=== PATIENT | male | born 1965 | race African-American/Black ===

== ENCOUNTER 2020-09-08 17:33 | Emergency (ER) | payer MEDICAID ==
[~2020-09-08] VITALS: Ht 175.3 cm; Wt 97.1 kg
[2020-09-08 17:35] VITALS: BP 131/84
--- NOTE | 2020-09-08 17:35 | NUR ---
ED Nurse Note: Pt JANESSA Bagley from [facility] for FC insertion. Per EMS, nursing staff at the facility had a difficulty advancing the catheter in. Trauma around the genital area is noted from condom catheter. AAOx3, verbally responsive. No SOB. ERMD at bedside.
--- NOTE | 2020-09-08 18:20 | NUR ---
ED Nurse Note: 2 RNs attempted to insert tyson cath but met resistance. ERMD notified.
--- NOTE | 2020-09-08 19:20 | NUR ---
ED Nurse Note: Informed consent for suprapubic catheter placement obtained by Dr. Eusebio Hobson and patient signed the consent.
--- NOTE | 2020-09-08 21:16 | NUR ---
ED Nurse Note: report given to CHANCE Caceres at [facility].
[2020-09-08 22:04] VITALS: BP 110/74
--- NOTE | 2020-09-08 22:04 | NUR ---
ER DISCHARGE NOTE: Patient is cleared to be discharged per ERMD, pt is aox4, on room air, with stable vital signs. [facility] given patient packet, pt was able to verbalize dc instructions understanding, pt id band removed. pt had no belongings. pt transported back to [facility] accompanied by [facility] in stable condition.
--- NOTE | 2020-09-08 22:44 | Emergency Room Report ---
History of Present Illness General Chief Complaint: Male Urogenital Problems Source: Patient, Medical Record Present Illness HPI 54-year-old male presents the ED for urinary retention. Coming from [facility] facility. History of BPH. Navarrete catheter was removed few weeks ago and has not had had a hard time urinating. Attempted with condom catheter. Nursing at [facility] facility attempted to place a Navarrete and were unsuccessful. Patient states he feels okay. Denies fevers or chills. Denies any pain. No other aggravating relieving factors. 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 Patient History Past Medical History: HTN, GERD, other - BPH Past Surgical History: none Pertinent Family History: none Social History: Denies: smoking, alcohol use, drug use Immunizations: UTD Reviewed Nursing Documentation: PMH: Agreed; PSxH: Agreed Nursing Documentation-PMH Hx Hypertension: Yes Hx Gastrointestinal Problems: Yes - GERD Hx Neurological Problems: Yes - paraplegia Review of Systems All Other Systems: negative except mentioned in HPI Physical Exam Vital Signs Date Time Temp Pulse Resp B/P (MAP) Pulse Ox O2 Delivery O2 Flow Rate FiO2 09/08/20 17:29 98.8 75 18 131/84 (100) 97 09/08/20 17:35 Room Air Sp02 EP Interpretation: reviewed, normal General Appearance: no apparent distress, alert, GCS 15, non-toxic Head: normocephalic, atraumatic Eyes: bilateral eye normal inspection, bilateral eye PERRL ENT: hearing grossly normal, normal pharynx, no angioedema, normal voice Neck: full range of motion, supple/symm/no masses Respiratory: chest non-tender, lungs clear, normal breath sounds, speaking full sentences Cardiovascular #1: regular rate, rhythm, no edema Cardiovascular #2: 2+ carotid (R), 2+ carotid (L), 2+ radial (R), 2+ radial (L), 2+ dorsalis pedis (R), 2+ dorsalis pedis (L) Gastrointestinal: normal bowel sounds, non tender, soft, non-distended, no guarding, no rebound Rectal: deferred Genitourinary: normal inspection, no CVA tenderness Musculoskeletal: back normal, non-tender Neurologic: alert, motor strength/tone normal, oriented x3, sensory intact, responsive, speech normal Psychiatric: judgement/insight normal, memory normal, mood/affect normal, no suicidal/homicidal ideation Reflexes: 3+ bicep (R), 3+ bicep (L), 3+ tricep (R), 3+ tricep (L), 3+ knee (R), 3+ knee (L) Skin: no rash Lymphatic: no adenopathy Medical Decision Making Diagnostic Impression: Primary Impression: Abnormal urogenital findings ER Course Hospital Course 54 yo M presents with urinary retention. h/o BPH Differential diagnoses include: obstruction, UTI, BPH Clinical course Patient placed on stretcher. After initial history and physical I attempted to place Navarrete catheter and coud with no success Dr. Hobson also attempted but was unsuccessful and placed a suprapubic catheter Discussed with PMD Dr. Gomez. Safe for discharge back to [facility] facility. Diagnosis - urinary retention Stable and discharged to SNF with suprapubic catheter + leg bag. Instructed to followup with PMD/urologist. Return to ED if symptoms recur or worsen Last Vital Signs Date Time Temp Pulse Resp B/P (MAP) Pulse Ox O2 Delivery O2 Flow Rate FiO2 09/08/20 22:04 98.6 70 18 110/74 99 Room Air Status: improved Disposition: SNF Condition: Stable Referrals: Zeina Gomez M.D. (PCP) Eusebio Hobson MD Patient Instructions: Suprapubic Catheter Replacement, Care After Jermaine Calloway MD Sep 08, 2020 22:44
== END 2020-09-08 22:04 | disposition home or self-care (01) ==
LOC: EDBD 17:33 → EMR 18:12
DX: R33.9 Retention of urine, unspecified (principal); I10 Essential (primary) hypertension; K21.9 Gastro-esophageal reflux disease without esophagitis; N40.0 Benign prostatic hyperplasia without lower urinary tract symptoms; G82.20 Paraplegia, unspecified; Z88.5 Allergy status to narcotic agent
CPT/HCPCS: 51702; Z7502; 99284

== ENCOUNTER 2020-09-15 01:35 | Emergency (ER) | payer MEDICAID, OTHER ==
[~2020-09-15] VITALS: Ht 167.6 cm; Wt 81.6 kg
[2020-09-15 01:40] VITALS: BP 118/79
--- NOTE | 2020-09-15 01:40 | NUR ---
ED Nurse Note: brought in by [facility] from [facility] c/o fever of 101.7 at facility. per ems, pt given 600 mg tylenol and norco5-325 mg for pain. temp by ems was 97.8. vss, nad, bedbound, aaox4, droplet precaution observed, on quality assurance monitor body, ermd at bedside. pt is quadriplegic. breathing unlabored and even, denies any pain at this time. pt presents with suprapubic catheter and gi stoma pouch
--- NOTE | 2020-09-15 01:50 | Emergency Room Report ---
History of Present Illness General Chief Complaint: Fever Source: Patient, Medical Record, EMS Present Illness HPI This is a 54-year-old male who is a paraplegic. He has colostomy bag and recent suprapubic catheter placed here. Patient presents with fever. He is coming from a shelter. There is Covid patient over there. Fever was 101.7 tonight. He received Tylenol. He has no other symptoms. No cough or congestion. No pain. No urinary complaint. 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 COVID-19 Screening: PUI COVID-19 COVID-19 Testing Source: [facility] Patient History Past Medical History: see triage record, old chart reviewed Past Surgical History: other Pertinent Family History: none Social History: Denies: smoking Immunizations: other Nursing Documentation-PMH Hx Hypertension: Yes Hx Gastrointestinal Problems: Yes - GERD Hx Neurological Problems: Yes - paraplegia Review of Systems Constitutional: Reports: fever Eye: Denies: eye pain, blurred vision ENT: Denies: ear pain, nose congestion, throat swelling Respiratory: Denies: cough, shortness of breath Cardiovascular: Denies: chest pain, palpitations Gastrointestinal: Denies: abdominal pain, diarrhea, nausea, vomiting Musculoskeletal: Denies: back pain, joint pain Skin: Denies: rash Neurological: Denies: headache, numbness Endocrine: Denies: increased thirst, increased urine Hematologic/Lymphatic: Denies: easy bruising All Other Systems: negative except mentioned in HPI Physical Exam Vital Signs Date Time Temp Pulse Resp B/P (MAP) Pulse Ox O2 Delivery O2 Flow Rate FiO2 09/15/20 01:36 97.7 76 16 122/74 (90) 97 Room Air Vitals normal Sp02 EP Interpretation: reviewed, normal General Appearance: well appearing, no apparent distress, alert Head: normocephalic, atraumatic Eyes: bilateral eye PERRL, bilateral eye EOMI ENT: hearing grossly normal, normal pharynx Neck: full range of motion, supple, no meningismus Respiratory: chest non-tender, lungs clear, normal breath sounds Cardiovascular #1: regular rate, rhythm, no murmur Gastrointestinal: normal bowel sounds, non tender, no mass, no organomegaly, no bruit, non-distended Musculoskeletal: other - Decubital ulcer of sacrum Neurologic: other - Patient is paraplegic Psychiatric: mood/affect normal Medical Decision Making Diagnostic Impression: Primary Impression: UTI (urinary tract infection) Qualified Codes: N30.00 - Acute cystitis without hematuria Additional Impression: COVID-19 virus infection ER Course Patient presents with fever. He is positive for Covid. Also has UTI. Dose of antibiotics given IM here. Patient has no rest or distress. Oxygenation is 100% on room air. Will discharge to shelter. Chest X-Ray Diagnostic Results Chest X-Ray Diagnostic Results : Chest X-Ray Ordered: Yes # of Views/Limited/Complete: 1 View Indication: Shortness of Breath EP Interpretation: Yes Interpretation: no consolidation, no effusion, no pneumothorax, no acute cardiopulmonary disease Impression: No acute disease Electronically Signed by: Adnrew Sofia MD Last Vital Signs Date Time Temp Pulse Resp B/P (MAP) Pulse Ox O2 Delivery O2 Flow Rate FiO2 09/15/20 01:36 97.7 76 16 122/74 (90) 97 Room Air Status: improved Disposition: SNF Condition: Stable Scripts Levofloxacin (LEVOFLOXACIN*) 500 Mg Tablet 500 MG ORAL DAILY, #7 TAB Prov: Andrew Sofia MD 09/15/20 Additional Instructions: Follow-up with your doctor in 2 to 3 days. Return if symptoms worsen. Andrew Sofia MD Sep 15, 2020 01:50
--- NOTE | 2020-09-15 01:55 | NUR ---
ED Nurse Note: xr at bedside
--- NOTE | 2020-09-15 02:00 | NUR ---
ED Nurse Note: ermd aware of no iv access
--- NOTE | 2020-09-15 02:00 | NUR ---
ED Nurse Note: unable to obtain iv access by both primary rn and charge master analyst. blood, covid and urine drawn and sent to lab.
[2020-09-15 02:22] LABS: APPEARANCE,URINE TURBID; BILIRUBIN, URINE NEGATIVE (NEGATIVE); GLUCOSE, URINE (UA) NEGATIVE (NEGATIVE); KETONES,URINE NEGATIVE (NEGATIVE); LEUKOCYTE ESTERASE ,URINE 3+ (NEGATIVE); NITRITE,URINE POSITIVE (NEGATIVE); PH,URINE 8 (4.5-8.0); PROTEIN,URINE 3+ (NEGATIVE); UROBILINOGEN,URINE NORMAL MG/DL (0.0-1.0)
[2020-09-15 02:30] LABS: COLOR,URINE YELLOW
[2020-09-15 02:42] LABS: BASOPHILS % (AUTO) 0.5 % (0.0-2.0); EOSINOPHILS % (AUTO) 3.7 % (0.0-3.0); HEMATOCRIT 32.6 % (42.0-52.0); HEMOGLOBIN 10.2 G/DL (14.2-18.0); LYMPHOCYTES % (AUTO) 30.6 % (20.0-45.0); MEAN CORPUSCULAR VOLUME 86 FL (80-99); MONOCYTES % (AUTO) 6.1 % (1.0-10.0); NEUTROPHILS % (AUTO) 59.1 % (45.0-75.0); PLATELET COUNT 312 K/UL (150-450); RED BLOOD COUNT 3.81 M/UL (4.70-6.10); RED CELL DISTRIBUTION WIDTH 16.7 % (11.6-14.8)
--- NOTE | 2020-09-15 02:45 | Diagnostic Imaging Report ---
EXAM: XR Chest, 1 View CLINICAL HISTORY: SOB TECHNIQUE: Frontal view of the chest. COMPARISON: No relevant prior studies available. FINDINGS: Lungs: Otherwise no acute cardiopulmonary disease. Pleural space: Unremarkable. No pneumothorax. Heart: Mild cardiomegaly. Mediastinum: Unremarkable. Bones/joints: No acute abnormality IMPRESSION: 1. Mild cardiomegaly. 2. Otherwise no acute cardiopulmonary disease. 3. If there is continued concern, recommend CT.
[2020-09-15 02:53] LABS: ANION GAP 8 mmol/L (5-15); BLOOD UREA NITROGEN 12 mg/dL (7-18); CALCIUM 8.6 MG/DL (8.5-10.1); CARBON DIOXIDE 26 MMOL/L (21-32); CHLORIDE 100 MMOL/L (98-107); CREATININE 0.8 MG/DL (0.55-1.30); POTASSIUM 3.8 MMOL/L (3.5-5.1); SODIUM 134 MMOL/L (136-145)
[2020-09-15 03:09] LABS: ALANINE AMINOTRANSFERASE 18 U/L (12-78); ALBUMIN 2.6 G/DL (3.4-5.0); ALBUMIN/GLOBULIN RATIO 0.5 (1.0-2.7); ALKALINE PHOSPHATASE 106 U/L (46-116); ASPARTATE AMINO TRANSFERASE 17 U/L (15-37); BILIRUBIN,TOTAL 0.3 MG/DL (0.2-1.0); CKMB < 0.5 NG/ML (0.0-3.6); CREATINE KINASE 125 U/L (26-308); FERRITIN 993 NG/ML (8-388); LACTATE DEHYDROGENASE 201 U/L (81-234)
[2020-09-15] MEDS ORDERED: LEVOFLOXACIN500 MG ORAL (04:03)
[2020-09-15 06:30] VITALS: BP 132/70
--- NOTE | 2020-09-15 06:30 | NUR ---
ER DISCHARGE NOTE: Patient is cleared to be discharged back to facility via deisy MENDIOLA, pt is aox4, on room air, with stable vital signs. pt was given dc and prescription instructions, pt was able to verbalize understanding, pt id band removed without complications.
== END 2020-09-15 07:00 ==
LOC: EDBD 01:35 → EMR 01:49
DX: N39.0 Urinary tract infection, site not specified (principal); U07.1 COVID-19; R50.9 Fever, unspecified; I10 Essential (primary) hypertension; K21.9 Gastro-esophageal reflux disease without esophagitis; G82.20 Paraplegia, unspecified; Z93.3 Colostomy status; Z88.5 Allergy status to narcotic agent; Z88.8 Allergy status to other drugs, medicaments and biological substances
CPT/HCPCS: 36415; 71045; 80053; 81003; 82550; 82553; 82728; 83605; 83615; 83690; 83880; 84484; 85025; 85379; 85610; 85730; 86140; 87040; 87086; 87181; 96372; U0002; Z7502; 99284

== ENCOUNTER 2020-09-15 21:55 | Emergency (ER) | payer MEDICAID, OTHER ==
[~2020-09-15] VITALS: Ht 177.8 cm; Wt 90.7 kg
[~2020-09-15 21:55] MED LIST: LEVOFLOXACIN500 MG ORAL
--- NOTE | 2020-09-15 22:15 | NUR ---
ED Nurse Note: Patient brought in by ambulance [facility] from [facility] for suprapubic catheter insertion. Pt would be sent back to SNF per staff after placement. Pt is alert and awake. PT was Covid positive yesterday. Isolation prec initiated.
[2020-09-15 22:20] VITALS: BP 122/72
--- NOTE | 2020-09-15 22:20 | NUR ---
ED Nurse Note: ERMD at bedside
--- NOTE | 2020-09-15 23:00 | NUR ---
ED Nurse Note: RENÉE guided IV insertion done by MAURY at bedside
[2020-09-15 23:28] LABS: BASOPHILS % (AUTO) 1.1 % (0.0-2.0); EOSINOPHILS % (AUTO) 3.7 % (0.0-3.0); HEMATOCRIT 31.7 % (42.0-52.0); HEMOGLOBIN 10.1 G/DL (14.2-18.0); LYMPHOCYTES % (AUTO) 27.9 % (20.0-45.0); MEAN CORPUSCULAR VOLUME 86 FL (80-99); MONOCYTES % (AUTO) 4.9 % (1.0-10.0); NEUTROPHILS % (AUTO) 62.4 % (45.0-75.0); PLATELET COUNT 336 K/UL (150-450); RED BLOOD COUNT 3.69 M/UL (4.70-6.10); RED CELL DISTRIBUTION WIDTH 16.8 % (11.6-14.8); WHITE BLOOD COUNT 11.9 K/UL (4.8-10.8)
[2020-09-15] MEDS ORDERED: Piperacillin/Tazobactam 3.375 GM in NS 110 ML IVPB ONE (23:30)
[2020-09-15] MEDS ORDERED: Omnipaque-300 100ml vial INJ PRN (23:30)
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
[2020-09-15 23:32] LABS: ANION GAP 6 mmol/L (5-15); BLOOD UREA NITROGEN 14 mg/dL (7-18); CALCIUM 9.1 MG/DL (8.5-10.1); CARBON DIOXIDE 29 MMOL/L (21-32); CHLORIDE 99 MMOL/L (98-107); CREATININE 0.9 MG/DL (0.55-1.30); POTASSIUM 4.4 MMOL/L (3.5-5.1); SODIUM 133 MMOL/L (136-145)
[2020-09-15 23:37] LABS: ALANINE AMINOTRANSFERASE 16 U/L (12-78); ALBUMIN 2.6 G/DL (3.4-5.0); ALBUMIN/GLOBULIN RATIO 0.5 (1.0-2.7); ALKALINE PHOSPHATASE 112 U/L (46-116); ASPARTATE AMINO TRANSFERASE 26 U/L (15-37); BILIRUBIN,TOTAL 0.3 MG/DL (0.2-1.0)
[2020-09-16] MEDS ORDERED: HYDROmorphone 1mg/ml Carpuject IVP PRN
--- NOTE | 2020-09-16 01:15 | NUR ---
ED Nurse Note: CT scan done
--- NOTE | 2020-09-16 01:42 | NUR ---
ED Nurse Note: Report given to DAGO FLETCHER at [facility]
--- NOTE | 2020-09-16 02:07 | Diagnostic Imaging Report ---
EXAM: CT Abdomen and Pelvis With Intravenous Contrast CLINICAL HISTORY: ABD PAIN TECHNIQUE: Axial computed tomography images of the abdomen and pelvis with intravenous contrast. CTDI is 14.1 mGy and DLP is 762.7 mGy-cm. One or more of the following dose reduction techniques were used: automated exposure control, adjustment of the mA and/or kV according to patient size, use of iterative reconstruction technique. COMPARISON: No relevant prior studies available. FINDINGS: Lung bases: No mass. No consolidation. ABDOMEN: Liver: Mildly nodular. Gallbladder and bile ducts: Unremarkable. Pancreas: Unremarkable. Spleen: Unremarkable. Adrenals: Unremarkable. Kidneys and ureters: No hydronephrosis. Stomach and bowel: No bowel obstruction. No bowel wall thickening. Mild hiatal hernia. PELVIS: Appendix: No evidence of appendicitis. Bladder: Severely distended bladder with areas of diverticulum. Reproductive: Unremarkable. ABDOMEN and PELVIS: Intraperitoneal space: Unremarkable. Bones/joints: No acute fractures. Severe disc height loss at L5-S1. Chronic appearance of the pelvic bones and bilateral femur. Soft tissues: Left-sided ostomy. Bilateral sacral decubitus ulcers. Vasculature: No abdominal aortic aneurysm. IVC filter is in place. Lymph nodes: No enlarged lymph nodes. IMPRESSION: 1. Mildly nodular liver suggestive of early cirrhotic morphology. 2. Mild hiatal hernia. 3. Distended bladder with areas of diverticulum. 4. Bilateral sacral decubitus ulcers with chronic severe deformities of the pelvic and femoral bones. Likely due to chronic osteomyelitis and posttreatment changes.
--- NOTE | 2020-09-16 02:32 | NUR ---
ED Nurse Note: Bedside report given to [facility] jenna MANJARREZ
--- NOTE | 2020-09-16 02:33 | NUR ---
ER DISCHARGE NOTE: Patient is cleared to be transferred per ERMD. Pt was picked up by [facility] ambulance going to [facility]. Pts packet and report given to ambulance personnel. Pt id band and iv site endorsed without complications. Pt was transported safely to the [facility] and to the ambulance
[2020-09-16 02:36] VITALS: BP 134/85
== END 2020-09-16 02:30 | disposition short-term general hospital (02) ==
LOC: EDBD 21:55 → EMR 22:49 → EDBEDREQ 09-16 00:40 → EMR 09-16 02:30
DX: N32.1 Vesicointestinal fistula (principal); T83.028A Displacement of other urinary catheter, initial encounter; N30.00 Acute cystitis without hematuria; U07.1 COVID-19; I10 Essential (primary) hypertension; G82.20 Paraplegia, unspecified; Z88.5 Allergy status to narcotic agent; Z88.8 Allergy status to other drugs, medicaments and biological substances; Z91.09 Other allergy status, other than to drugs and biological substances
CPT/HCPCS: 36415; 51705; 74177; 80053; 83605; 83690; 85025; 85610; 85730; 86850; 86900; 86901; 96365; 96368; J2543; J7030; Q9965; Z7502; 99284

== ENCOUNTER 2020-10-24 18:08 | Emergency (ER) | payer MEDICAID ==
[~2020-10-24] VITALS: Ht 180.3 cm; Wt 90.7 kg
--- NOTE | 2020-10-24 18:40 | Emergency Room Report ---
History of Present Illness General Chief Complaint: Male Urogenital Problems Source: EMS Present Illness HPI 55-year-old male here for suprapubic catheter dysfunction. Patient has had a suprapubic catheter in place for several years but this particular catheter has been in place for 1 month. Patient says "it is about time that he gets replaced." He says that for the past 24 hours the catheter has not been draining any urine. There has been some urine leakage from around the catheter insertion site. Denies fevers, chills, chest pain, palpitation, shortness of breath, back pain, abdominal pain, nausea, vomiting, diarrhea, dysuria. 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 COVID-19 Screening: Negative COVID-19 COVID-19 Testing Source: elijah liang [facility] Nursing Documentation-H Past Medical History: No History, Except For Hx Hypertension: Yes Hx Gastrointestinal Problems: Yes - GERD Hx Neurological Problems: Yes - paraplegia Review of Systems All Other Systems: negative except mentioned in HPI Physical Exam Vital Signs Date Time Temp Pulse Resp B/P (MAP) Pulse Ox O2 Delivery O2 Flow Rate FiO2 10/24/20 18:09 98.8 72 18 134/68 (90) 95 Room Air Sp02 EP Interpretation: reviewed, normal General Appearance: no apparent distress, alert, non-toxic Head: normocephalic, atraumatic Eyes: bilateral eye normal inspection, bilateral eye PERRL ENT: hearing grossly normal, normal pharynx, no angioedema, normal voice Neck: full range of motion, supple/symm/no masses Respiratory: chest non-tender, lungs clear, normal breath sounds, speaking full sentences Cardiovascular #1: regular rate, rhythm, no edema Cardiovascular #2: 2+ carotid (R), 2+ carotid (L), 2+ radial (R), 2+ radial (L), 2+ dorsalis pedis (R), 2+ dorsalis pedis (L) Gastrointestinal: normal bowel sounds, non tender, soft, non-distended, no guarding, no rebound, other - Suprapubic catheter in place with active urine drainage from the insertion site. Left lower quadrant ostomy in place with fecal matter within the colostomy bag. Stoma pink Rectal: deferred Genitourinary: normal inspection, no CVA tenderness Musculoskeletal: back normal, normal range of motion, gait/station normal, non- tender Neurologic: alert, motor strength/tone normal, oriented x3, sensory intact, responsive, speech normal Psychiatric: judgement/insight normal, memory normal, mood/affect normal, no suicidal/homicidal ideation Lymphatic: no adenopathy Medical Decision Making Diagnostic Impression: Primary Impression: Suprapubic catheter dysfunction ER Course Laboratory Tests Test 10/24/20 18:50 Urine Color Yellow Urine Appearance Cloudy Urine pH 6 (4.5-8.0) Urine Specific Lykens 1.010 (1.005-1.035) Urine Protein 1+ (NEGATIVE) H Urine Glucose (UA) Negative (NEGATIVE) Urine Ketones Negative (NEGATIVE) Urine Blood 2+ (NEGATIVE) H Urine Nitrite Positive (NEGATIVE) H Urine Bilirubin Negative (NEGATIVE) Urine Urobilinogen Normal MG/DL (0.0-1.0) Urine Leukocyte Esterase 3+ (NEGATIVE) H Urine RBC 2-4 /HPF (0 - 0) H Urine WBC Tntc /HPF (0 - 0) H Urine Squamous Epithelial Cells Few /LPF (NONE/OCC) Urine Bacteria Many /HPF (NONE) H 55-year-old male here with nondraining suprapubic catheter. The catheter was replaced easily with another 16 Frisian catheter. 600 cc of urine were drained. Urinalysis showed evidence of infection. Review of microbiology reports from years past show pansensitive E. coli UTI. Patient given prescription for Keflex. Told to follow-up with primary care. Discharged in stable condition. Last Vital Signs Date Time Temp Pulse Resp B/P (MAP) Pulse Ox O2 Delivery O2 Flow Rate FiO2 10/24/20 18:09 98.8 72 18 134/68 (90) 95 Room Air Scripts Cephalexin* (KEFLEX*) 500 Mg Capsule 500 MG ORAL EVERY 12 HOURS, #14 CAP 0 Refills Prov: Jose Carter M.D. 10/24/20 Jose Carter M.D. Oct 24, 2020 18:40
--- NOTE | 2020-10-24 18:50 | NUR ---
ED Nurse Note:pt. was BIBA from SNF with leaking suprapubic catheter, pt. is A/Ox4 , VSS, catheter was changed by ER MD, urine sent to labs
[2020-10-24 19:08] LABS: APPEARANCE,URINE CLOUDY; BILIRUBIN, URINE NEGATIVE (NEGATIVE); GLUCOSE, URINE (UA) NEGATIVE (NEGATIVE); KETONES,URINE NEGATIVE (NEGATIVE); LEUKOCYTE ESTERASE ,URINE 3+ (NEGATIVE); NITRITE,URINE POSITIVE (NEGATIVE); PH,URINE 6 (4.5-8.0); PROTEIN,URINE 1+ (NEGATIVE); UROBILINOGEN,URINE NORMAL MG/DL (0.0-1.0)
[2020-10-24 19:09] LABS: COLOR,URINE YELLOW
[2020-10-24 19:11] VITALS: BP 134/68
[2020-10-24] MEDS ORDERED: CEPHALEXIN500 MG ORAL (19:16)
--- NOTE | 2020-10-24 19:16 | NUR ---
HAND-OFF: Report given to Ina.
--- NOTE | 2020-10-24 19:30 | NUR ---
ED Nurse Note: RECIEVED REPORT FROM AM NURSE TO RESUME CARE, PT HERE FROM SNF WITH C/O CLOGGED SUPRAPUBIC CATH, AT BEDSIDE AND JUST COMPLETED CHANGING CATH, ORDERS GIVEN VERBALLY TO IRRIGATE CATH AND MONITOR OUTPUT CLOSELY, MILD SEDIMENTATION NOTED, IRRIGATED WITH 40ML OF ns AND RECIEVED 600ML OF RETURNED YELLOW URINE, PT STATES IMMEDIATE RELIEF OF PRESSURE IN ABDOMEN, V/S STABLE, PT BEING PREPARED TO GO BACK TO FACILITY, DENIES ANY OTHER COMPLAITNS OR DISCOMFORTS, NAD NOTED.
[2020-10-24 20:05] VITALS: BP 131/74
--- NOTE | 2020-10-24 20:45 | NUR ---
ED Nurse Note: Pt continues to rest quietly on gurney, denies pain or any acute chagnes, suprapubic cath to drainage and continues to drain urine, pt has been discharged and waiting for ambulance transport, pt assisted with repositioning and diaper change, nad or changes noted, will continue to closely monitor while waiting for transport back to facility.
--- NOTE | 2020-10-24 21:40 | NUR ---
ED Nurse Note: Ambulance transport has arrived for pt transport, placed call to [facility] at [phone], spoke with nurse Peacock and gave all pertintent info and informed of pt returning with d/c instructions and prescription, [facility] ambulance rig#[id number] has arrived, report and all forms given to driver/merchandiser Ricardo, pt leaving awake, alert and oriented x 4, denies pain, no sob or labored breathing, nad ntoed during pt transport back to facility.
[2020-10-24 21:45] VITALS: BP 139/79
[2020-10-24 22:00] VITALS: BP 139/79
--- NOTE | 2020-10-24 22:00 | NUR ---
ER DISCHARGE NOTE: Patient is cleared to be discharged per ERMD, pt is aox4, on room air, with stable vital signs. pt was given dc and prescription instructions, pt was able to verbalize understanding, pt id band removed without complications. pt is able to ambulate with steady gait. pt took all belongings.
== END 2020-10-24 22:00 | disposition home or self-care (01) ==
LOC: EDBD 18:08 → EMR 18:51
DX: T83.038A Leakage of other urinary catheter, initial encounter (principal); I10 Essential (primary) hypertension; G82.20 Paraplegia, unspecified; Z88.5 Allergy status to narcotic agent; Z88.8 Allergy status to other drugs, medicaments and biological substances; Z91.09 Other allergy status, other than to drugs and biological substances
CPT/HCPCS: 51702; 81003; 87086; Z7502; 99283